=== PATIENT | female | born 1980 | race Caucasian/White ===

== ENCOUNTER 2018-03-29 19:46 | Emergency (ER) | payer OTHER ==
[2018-03-29 20:02] VITALS: BP 137/65; PULSE 92; TEMP 99; BMI 34.9
[2018-03-29] MEDS ORDERED: CLINDAMYCIN 900 MG PREMIX IVPB 900 MG/50 ML BAG IVPB ONE (20:44)
--- NOTE | 2018-03-29 20:44 | PDOC ---
History of Present Illness - General Chief Complaint: Abscess Boil Stated Complaint: PAIN Time Seen by Provider: 03/29/18 20:06 History Source: Patient Exam Limitations: No Limitations - History of Present Illness Initial Comments: 03/29/18 21:16 Best Contact: PCP: Dr. Berg/pt states her PMD recently and did not get another pmd Pmhx:Asthma, Hypoglycemic Pshx: 2016: Right knee arthroscopy ;2007 , @ 19yo: Appendectomy, bilateral ovarian cystectomy Allergies:pcn/"anesthesia medication"/rash/sob FH:0 Social Hx: Cigarettes/ 10 cigarettes a day for the past 10 years Alcohol/ social Drugs/denies LMP:03/22/2018 37-year-old female presents to the ER complaining of an early abscess to the left labia majora. Patient states she noticed it 2 days ago after "plucking her hair ". Patient denies fever, chills, chest pain, shortness of breath, abdominal pains, urinary symptoms: Frequency/urgency/hesitancy, burning upon urination, hematuria. Patient states pain is exacerbated on touch but alleviated with warm compresses. Patient adamantly refuses any type of I&D. Patient states she wants to have under sedation by her obstetrician gynecologist. Past History - Past Medical History Allergies/Adverse Reactions: Allergies Allergy/AdvReac Type Severity Reaction Status Date / Time Penicillins Allergy Swelling Verified 03/29/18 19:49 ANESTHESIA Allergy Swelling Uncoded 03/29/18 19:49 Home Medications: Ambulatory Orders Albuterol Sulfate Inhaler - [Ventolin Hfa Inhaler -] 2 inh PO Q4H PRN 10/02/16 Asthma: Yes COPD: No Kidney Stones: Yes - Surgical History Appendectomy: Yes Cholecystectomy: No - Immunization History Td Vaccination: Yes Immunization Up to Date: Yes - Suicide/Smoking/Psychosocial Hx Smoking Status: No Smoking History: Current every day smoker Years of Tobacco Use: 0 Number of Cigarettes Smoked Daily: 10 Cigars Per Day: 0 Information on smoking cessation initiated: No 'Breaking Loose' booklet given: 07/11/15 Hx Alcohol Use: Yes Drug/Substance Use Hx: No Substance Use Type: None Hx Substance Use Treatment: Yes (new focus 2014,2015) Review of Systems - Review of Systems Able to Perform ROS?: Yes Comments:: 03/29/18 21:03 CONSTITUTIONAL: Absent: fever, chills, diaphoresis, generalized weakness, malaise, loss of appetite GENITOURINARY: Absent: dysuria, frequency, urgency, hesitancy, hematuria, flank pain, genital pain MUSCULOSKELETAL: Absent: myalgia, arthralgia, joint swelling SKIN: Indurated 2cm x3cm labia majora Absent: rash, itching, pallor HEMATOLOGIC/IMMUNOLOGIC: Absent: easy bleeding, easy bruising, lymphadenopathy, frequent infections ENDOCRINE: Absent: unexplained weight gain, unexplained weight loss, heat intolerance, cold intolerance Is the patient limited B[place]udian proficient: No *Physical Exam - Vital Signs Last Vital Signs Temp Pulse Resp BP Pulse Ox 99 F 92 H 18 137/65 98 03/29/18 19:51 03/29/18 19:51 03/29/18 19:51 03/29/18 19:51 03/29/18 19:51 - Physical Exam Comments: 03/29/18 21:09 GENERAL: Well developed, well nourished. Awake and alert. No acute distress. ABDOMINAL: Soft. Non-tender. Non-distended. No rebound or guarding. No organomegaly. Normoactive bowel sounds. MUSCULOSKELETAL Normal range of motion at all joints. No bony deformities or tenderness. No CVA tenderness. EXTREMITIES: No cyanosis. No clubbing. No edema. No calf tenderness. SKIN: Indurated 2cm x3cm labia majora; neg lymphangitis Warm and dry. Normal capillary refill. No rashes. No jaundice. Progress Note - Progress Note Progress Note: 2101hrs: Pt refuses I&D. Pt adamantly wishes to f/u with obstetrician gynecologist to have sedation duirng I&D. Clindamycin 900ivss *DC/Admit/Observation/Transfer Diagnosis at time of Disposition: Left genital labial abscess - Discharge Dispostion Disposition: HOME Condition at time of disposition: Stable Decision to Admit order: No - Referrals Referrals: Ramon Berg [Primary Care Provider] - Miriam Pineda MD [Staff Physician] - - Patient Instructions Printed Discharge Instructions: DI for Skin Abscess Additional Instructions: Warm compresses Antibiotics as prescribed Follow-up with [facility] within the next 2 days You refused to have an I&D/incision and drainage to your abscess and therefore insists on antibiotics. It is imperative that you follow up with your field sales manager within 48 hours. Return back to the ER for severe/persistent or worsening symptoms, fever or or red streak - Post Discharge Activity
== END 2018-03-29 21:50 | disposition home or self-care (01) ==
LOC: JER 19:46
DX: N76.4 Abscess of vulva (principal); Z87.09 Personal history of other diseases of the respiratory system; F17.210 Nicotine dependence, cigarettes, uncomplicated
CPT/HCPCS: 96365; 99282-25

== ENCOUNTER 2019-02-25 13:43 | Emergency (ER) | payer OTHER ==
--- NOTE | 2019-02-25 13:58 | PDOC ---
Rapid Medical Evaluation Chief Complaint: Injury Time Seen by Provider: 02/25/19 13:46 Medical Evaluation: Allergies Allergy/AdvReac Type Severity Reaction Status Date / Time Penicillins Allergy Swelling Verified 02/25/19 13:52 ANESTHESIA Allergy Swelling Uncoded 02/25/19 13:52 02/25/19 13:56 CC: right hand pain s/p window closed on hand. RHD. PE: tender over 2nd-5th metatarsals of right hand Orders: ice, xray Patient will proceed to ED for further evaluation. Discharge Disposition - Diagnosis Right hand pain - Referrals - Patient Instructions - Post Discharge Activity
[2019-02-25 14:02] VITALS: BP 127/84; PULSE 101; TEMP 98.2; BMI 35.9
[2019-02-25] MEDS ORDERED: IBUPROFEN 600 MG TABLET (FP) PO ONE ×2 (14:07→14:11)
--- NOTE | 2019-02-25 14:45 | PDOC ---
History of Present Illness - General Chief Complaint: Injury Stated Complaint: INJURY Time Seen by Provider: 02/25/19 13:46 History Source: Patient Exam Limitations: No Limitations - History of Present Illness Initial Comments: 02/25/19 15:28 Chief complaint: Right hand injury Patient is a 38-year-old female with a history of asthma who states she closed her right hand in a window last night. Hand is swollen and painful. Patient took her rings off. Patient did not take any pain medicine. GENERAL/CONSTITUTIONAL: No fever, weakness. dizziness HEAD, EYES, EARS, NOSE AND THROAT: No change in vision. No ear pain or discharge. No sore throat. CARDIOVASCULAR: No chest pain RESPIRATORY: No shortness of breath or cough GASTROINTESTINAL: No pain, nausea, vomiting, diarrhea or constipation GENITOURINARY: No dysuria MUSCULOSKELETAL: + Right hand, no neck or back pain SKIN: No rash NEUROLOGIC: No headache, vertigo, loss of consciousness, or loss of sensation. GENERAL: The patient is awake, alert, and fully oriented, in no acute distress. HEAD: Normal with no signs of trauma. EYES: Pupils equal, round and reactive to light, sclera anicteric, conjunctiva clear. ENT: pharynx: no erythema, no exudate, uvula midline NECK: supple CHEST: clear, nontender, rr ABD: soft, nontender BACK: no tenderness or signs of injury EXTREMITIES: Right hand with swelling on the dorsum, no signs of infection, no deformity, limited range of motion secondary to pain, neurovascular intact. Rest of extremities, normal range of motion, no edema. NEUROLOGICAL: Normal speech, normal gait. SKIN: Warm, Dry Past History - Past Medical History Allergies/Adverse Reactions: Allergies Allergy/AdvReac Type Severity Reaction Status Date / Time Penicillins Allergy Swelling Verified 02/25/19 13:52 ANESTHESIA Allergy Swelling Uncoded 02/25/19 13:52 Home Medications: Ambulatory Orders Albuterol Sulfate Inhaler - [Ventolin Hfa Inhaler -] 2 inh PO Q4H PRN 10/02/16 Acetaminophen W/ Codeine #3 [Tylenol # 3 -] 1 tab PO TID #12 tablet MDD 3 Clindamycin [Cleocin -] 300 mg PO TID #21 capsule 03/29/18 Sulfamethoxazole/Trimethoprim [Bactrim Ds -] 1 tab PO BID #14 tablet 03/29/18 Asthma: Yes Cancer: No Cardiac Disorders: No CVA: No COPD: No CHF: No Dementia: No Diabetes: No GI Disorders: No Disorders: No HTN: No Hypercholesterolemia: No Kidney Stones: Yes Liver Disease: No Seizures: No Thyroid Disease: No - Surgical History Appendectomy: Yes Cholecystectomy: No - Immunization History Td Vaccination: Yes Immunization Up to Date: Yes - Psycho Social/Smoking Cessation Hx Smoking Status: No Smoking History: Current every day smoker Years of Tobacco Use: 0 Number of Cigarettes Smoked Daily: 10 Cigars Per Day: 0 Information on smoking cessation initiated: No 'Breaking Loose' booklet given: 07/11/15 Hx Alcohol Use: No Drug/Substance Use Hx: No Substance Use Type: None Hx Substance Use Treatment: Yes (new focus 2014,2015) *Physical Exam - Vital Signs Last Vital Signs Temp Pulse Resp BP Pulse Ox 98.2 F 101 H 17 127/84 100 02/25/19 13:52 02/25/19 13:52 02/25/19 13:52 02/25/19 13:52 02/25/19 13:52 Procedures - Splinting Splint Location: Right: Hand Pre-Proc Neuro Vasc Exam: normal Hand-Made Type: orthoglass Splint Type: Yes: Volar Post-Proc Neuro Vasc Exam: normal Colin Bandage: 3" Sling: No ED Treatment Course - Medications Given in the ED: ED Medications Discontinued Medications Generic Name Dose Route Start Last Admin Trade Name Freq PRN Reason Stop Dose Admin Ibuprofen 600 mg 02/25/19 14:07 02/25/19 14:16 Motrin - PO 02/25/19 14:08 600 mg ONCE ONE Administration Medical Decision Making - Medical Decision Making 02/25/19 15:29 38-year-old female history of asthma who closed window on her right hand last night. Hand is swollen and painful. No open wounds or signs of infection. Patient will get x-ray and reassess. X-rays negative, patient is neurovascular intact, without signs of compartment syndrome. Patient will be placed in splint and follow-up with orthopedist for reevaluation and functionality Discussed issues, findings, results, applicable medications and treatments and follow-up. All these were understood and all questions were answered Discharge - Discharge Information Problems reviewed: Yes Clinical Impression/Diagnosis: Hand crush injury Qualifiers: Encounter type: initial encounter Laterality: right Qualified Code(s): S67.21XA - Crushing injury of right hand, initial encounter Condition: Stable Disposition: HOME - Admission No - Additional Discharge Information Prescription Drug Monitoring Program (I-STOP) results: I-STOP not reviewed - Follow up/Referral Referrals: Kailash Berg MD [Primary Care Provider] - Isai Gómez MD [Staff Physician] - - Patient Discharge Instructions Patient Printed Discharge Instructions: DI for Crush Injury Additional Instructions: Elevate, wear splint You can apply ice for 20 minutes every 2 hours for the next 2 days Motrin 600 mg every 6 hours for pain. Call the orthopedist tomorrow Is very important for you to keep your hand elevated, otherwise the swelling can become very severe, if this happens it can impair your circulation. If this happens and your fingers turn blue or they become extremely painful, remove the splint and return to the ER right away - Post Discharge Activity
== END 2019-02-25 14:48 | disposition home or self-care (01) ==
LOC: JERFT 13:43 → JER 13:43 → JERFT 14:48
PROC: 2W3CX1Z Immobilization of Right Lower Arm using Splint (ICD-10-PCS; principal; 2019-02-25)
DX: S67.21XA Crushing injury of right hand, initial encounter (principal); W23.0XXA Caught, crushed, jammed, or pinched between moving objects, initial encounter; Y93.89 Activity, other specified; Y92.89 Other specified places as the place of occurrence of the external cause; Y99.8 Other external cause status; J45.909 Unspecified asthma, uncomplicated; Z87.442 Personal history of urinary calculi; Z88.0 Allergy status to penicillin; Z88.4 Allergy status to anesthetic agent
CPT/HCPCS: 73130-TC-RT-FY; 99281-25

== ENCOUNTER 2019-06-07 12:19 | Emergency (ER) | payer OTHER ==
[2019-06-07 12:24] VITALS: TEMP 98.5; BMI 34.0
[2019-06-07] MEDS ORDERED: ONDANSETRON 4 MG/2 ML VIAL IVPUSH ONE (14:29)
[2019-06-07] MEDS ORDERED: KETOROLAC TROMETHAMINE 30 MG/1 ML VIAL IVPUSH ONE (14:29)
[2019-06-07] MEDS ORDERED: SODIUM CHLORIDE 1,000 ML IV STA ×2 (14:29→16:09)
[2019-06-07] MEDS ORDERED: KETOROLAC TROMETHAMINE 30 MG/1 ML VIAL ONE (15:18)
[2019-06-07] MEDS ORDERED: ONDANSETRON 4 MG/2 ML VIAL ONE (15:19)
[2019-06-07 15:28] LABS: BASO % 0.2 % (0-2.0); EOS % 1.1 % (0-4.5); HEMATOCRIT 42.1 % (32.4-45.2); HEMOGLOBIN 14.2 GM/dL (10.7-15.3); LYMPH % 11.9 % (8-40); MCH 30.7 pg (25.7-33.7); MCHC 33.7 g/dl (32.0-36.0); MEAN CELL VOLUME 91.2 fl (80-96); MEAN PLT VOLUME 7.8 fl (7.5-11.1); MONO % 6.3 % (3.8-10.2); NEUT % 80.5 % (42.8-82.8); PLATELET COUNT 330 K/MM3 (134-434); RBC 4.62 M/mm3 (3.60-5.2); WHITE BLOOD COUNT 11.4 K/mm3 (4.0-10.0)
[2019-06-07 15:30] LABS: EPI CELLS 5.5 /HPF (0-5/HPF); HYALINE CASTS 19 /lpf (0-8); URINE APPEARANCE CLOUDY; URINE BILIRUBIN NEGATIVE (NEGATIVE); URINE COLOR YELLOW; URINE GLUCOSE (UA) NEGATIVE (NEGATIVE); URINE KETONE NEGATIVE (NEGATIVE); URINE LEUK ESTERASE 1+ (NEGATIVE); URINE NITRITE NEGATIVE (NEGATIVE); URINE PROTEIN NEGATIVE (NEGATIVE); URINE WBC 33 /hpf (0-5)
--- NOTE | 2019-06-07 16:03 | PDOC ---
History of Present Illness - General Chief Complaint: Vomiting/Diarrhea Stated Complaint: Cold Symptoms Time Seen by Provider: 06/07/19 14:23 History Source: Patient Exam Limitations: No Limitations - History of Present Illness Travel History: No Initial Comments: 06/07/19 15:58 38-year-old female presents the ED with complaints of nausea vomiting and diarrhea along with upper abdominal cramping and bilateral rib pain. Patient also states chills. Patient denies any recent travel recent illness or recent sick contacts. Patient states was drinking alcohol last night which seemed to aggravate her symptoms. Patient states has not take anything for the above but states unable to tolerate fluids. Timing/Duration: reports: constant Quality: reports: mild, cramping Abdominal Pain Onset Location: reports: epigastric Pain Radiation: reports: no radiation Activities at Onset: reports: none Aggravating Factors: improves with: None Alleviating Factors: improves with: None Past History - Travel Traveled outside of the country in the last 30 days: No Close contact w/someone who was outside of country & ill: No - Past Medical History Allergies/Adverse Reactions: Allergies Allergy/AdvReac Type Severity Reaction Status Date / Time Penicillins Allergy Swelling Verified 06/07/19 12:21 ANESTHESIA Allergy Swelling Uncoded 06/07/19 12:21 Home Medications: Ambulatory Orders Albuterol Sulfate Inhaler - [Ventolin Hfa Inhaler -] 2 inh PO Q4H PRN 10/02/16 Acetaminophen W/ Codeine #3 [Tylenol # 3 -] 1 tab PO TID #12 tablet MDD 3 Clindamycin [Cleocin -] 300 mg PO TID #21 capsule 03/29/18 Sulfamethoxazole/Trimethoprim [Bactrim Ds -] 1 tab PO BID #14 tablet 03/29/18 Asthma: Yes Cancer: No Cardiac Disorders: No CVA: No COPD: No CHF: No Dementia: No Diabetes: No GI Disorders: No Disorders: No HTN: No Hypercholesterolemia: No Kidney Stones: Yes Liver Disease: No Seizures: No Thyroid Disease: No - Surgical History Appendectomy: Yes Cholecystectomy: No - Immunization History Td Vaccination: Yes Immunization Up to Date: Yes - Psycho Social/Smoking Cessation Hx Smoking Status: No Smoking History: Current every day smoker Years of Tobacco Use: 0 Number of Cigarettes Smoked Daily: 10 Cigars Per Day: 0 Information on smoking cessation initiated: No 'Breaking Loose' booklet given: 07/11/15 Hx Alcohol Use: No Drug/Substance Use Hx: No Substance Use Type: None Hx Substance Use Treatment: Yes (new focus 2014,2015) Patient Lives Alone: No Lives with/in: spouse/SO Review of Systems - Review of Systems Able to Perform ROS?: Yes Constitutional: Yes: Chills, Weakness HEENTM: No: Symptoms Reported Respiratory: No: Symptoms reported Cardiac (ROS): No: Symptoms Reported ABD/GI: Yes: Diarrhea, Nausea, Poor Appetite, Poor Fluid Intake, Vomiting, Abdominal cramping : No: Symptoms Reported Musculoskeletal: No: Symptoms Reported Integumentary: No: Symptoms Reported Neurological: No: Symptoms reported Endocrine: No: Symptoms Reported *Physical Exam - Vital Signs Last Vital Signs Temp Pulse Resp BP Pulse Ox 98.5 F 111 H 18 112/68 100 06/07/19 12:21 06/07/19 12:21 06/07/19 12:21 06/07/19 12:21 06/07/19 12:21 - Physical Exam General Appearance: Yes: Nourished, Appropriately Dressed. No: Apparent Distress HEENT: positive: TMs Normal, Pharynx Normal. negative: Pale Conjunctivae Neck: positive: Supple Respiratory/Chest: positive: Wheezing (rt base). negative: Respiratory Distress , Accessory Muscle Use Cardiovascular: positive: Regular Rhythm, Tachycardia. negative: Murmur Gastrointestinal/Abdominal: positive: Soft, Tenderness (Epigastric) Musculoskeletal: negative: CVA Tenderness Extremity: positive: Normal Inspection Integumentary: positive: Normal Color, Warm, Moist Neurologic: positive: Motor Strength 5/5 (Ambulatory) ED Treatment Course - LABORATORY CBC & Chemistry Diagram: 06/07/19 15:01 06/07/19 15:01 - ADDITIONAL ORDERS Additional order review: Laboratory Results 06/07/19 06/07/19 15:01 15:01 Magnesium 2.0 Lipase 109 Urine Color Yellow Urine Appearance Cloudy Urine pH 5.0 Ur Specific [place] 1.029 Urine Protein Negative Urine Glucose (UA) Negative Urine Ketones Negative Urine Blood 2+ H Urine Nitrite Negative Urine Bilirubin Negative Urine Urobilinogen 1.0 Ur Leukocyte Esterase 1+ H Urine WBC (Auto) 33 Urine Casts (Auto) 19 U Epithel Cells (Auto) 5.5 Urine Bacteria (Auto) 355.0 06/07/19 15:01 RBC 4.62 MCV 91.2 MCHC 33.7 RDW 13.0 MPV 7.8 Neutrophils % 80.5 Lymphocytes % 11.9 Monocytes % 6.3 Eosinophils % 1.1 Basophils % 0.2 - Medications Given in the ED: ED Medications Discontinued Medications Generic Name Dose Route Start Last Admin Trade Name Freq PRN Reason Stop Dose Admin Sodium Chloride 1,000 mls @ 1,000 mls/hr 06/07/19 14:29 06/07/19 15:20 Normal Saline - IV 06/07/19 15:28 1,000 mls/hr ASDIR STA Administration Ketorolac Tromethamine 30 mg 06/07/19 14:29 06/07/19 15:20 Toradol Injection - IVPUSH 06/07/19 14:30 30 mg ONCE ONE Administration Ondansetron HCl 4 mg 06/07/19 14:29 06/07/19 15:20 Zofran Injection IVPUSH 06/07/19 14:30 4 mg ONCE ONE Administration Medical Decision Making - Medical Decision Making 06/07/19 15:02 Chief complaint: Patient with nausea vomiting diarrhea chills and decreased appetite since yesterday. Patient states symptoms are aggravated after she drank yesterday now causing worsening nausea and weakness. Exam: Vital signs stable epigastric tenderness on exam otherwise normal physical exam. Plan: Influenza swab, labs, urine, IV fluids, Protonix, Zofran and Toradol ordered 06/07/19 16:04 Laboratory Tests 06/07/19 06/07/19 06/07/19 15:01 15:01 15:01 WBC 11.4 H Hgb 14.2 Hct 42.1 Absolute Neuts (auto) 9.2 H Magnesium 2.0 Lipase 109 Urine Blood 2+ H Urine Nitrite Negative Urine Bilirubin Negative Urine Urobilinogen 1.0 Ur Leukocyte Esterase 1+ H Urine WBC (Auto) 33 Urine Bacteria (Auto) 355.0 Influenza A (Rapid) Influenza B (Rapid) 06/07/19 15:01 WBC Hgb Hct Absolute Neuts (auto) Magnesium Lipase Urine Blood Urine Nitrite Urine Bilirubin Urine Urobilinogen Ur Leukocyte Esterase Urine WBC (Auto) Urine Bacteria (Auto) Influenza A (Rapid) Negative Influenza B (Rapid) Negative 06/07/19 18:27 CT shows left hydro-nephrolithiasis with no evidence of obstructive uropathy or acute pathology within the abdomen or pelvis. Chest x-ray shows normal chest. Patient does not want her second liter of fluid. Patient given Robitussin with codeine. Will discharge patient home with antibiotics for UTI. No previous urine culture on file. Will discharge home with Macrobid along with Zofran Discharge - Discharge Information Problems reviewed: Yes Clinical Impression/Diagnosis: Cough, UTI (urinary tract infection), Bronchitis Condition: Improved Disposition: HOME - Follow up/Referral - Patient Discharge Instructions Patient Printed Discharge Instructions: DI for Cough -- Adult, DI for Urinary Tract Infection (UTI) Additional Instructions: Please take Robitussin-AC as prescribed do not operate any heavy machinery while taking this medication. Take Levaquin as prescribed for UTI along with treatment for bronchitis. Take Zofran as needed for nausea. We will call you if your urine culture shows a different bacteria that is not responsive to Levaquin - Post Discharge Activity Work/Back to School Note: Back to Work
[2019-06-07 16:08] LABS: ALBUMIN 3.4 g/dl (3.4-5.0); BILIRUBIN,TOTAL 0.5 mg/dL (0.2-1); BLOOD UREA NITROGEN 12.7 mg/dL (7-18); CALCIUM 8.6 mg/dL (8.5-10.1); CREATININE 0.9 mg/dL (0.55-1.3); POTASSIUM 3.7 mmol/L (3.5-5.1); TOT PROT 7.1 g/dl (6.4-8.2)
[2019-06-07] MEDS ORDERED: guaiFENesin/CODEINE 10 ML UNIT-DOSE CUPS PO ONE (16:09)
[2019-06-07 16:44] LABS: URINE RBC 4.9 /hpf (0-4)
[2019-06-07] MEDS ORDERED: guaiFENesin/CODEINE 5 ML UNIT-DOSE CUPS PO ONE (18:15)
[2019-06-07 18:56] VITALS: BP 121/71; PULSE 82
== END 2019-06-07 18:56 | disposition home or self-care (01) ==
LOC: JER 12:19
PROC: 3E0337Z Introduction of Electrolytic and Water Balance Substance into Peripheral Vein, Percutaneous Approach (ICD-10-PCS; principal; 2019-06-07)
PROC: 3E033GC Introduction of Other Therapeutic Substance into Peripheral Vein, Percutaneous Approach (ICD-10-PCS; 2019-06-07)
PROC: 3E0333Z Introduction of Anti-inflammatory into Peripheral Vein, Percutaneous Approach (ICD-10-PCS; 2019-06-07)
DX: J40 Bronchitis, not specified as acute or chronic (principal); N39.0 Urinary tract infection, site not specified; Z88.0 Allergy status to penicillin; Z88.4 Allergy status to anesthetic agent; N13.39 Other hydronephrosis; Z87.442 Personal history of urinary calculi; Z87.09 Personal history of other diseases of the respiratory system
CPT/HCPCS: 36415; 71046-TC-FY; 74176-TC; 80053; 81003; 83690; 83735; 85025; 87086; 87804; 96361; 96374; 96375; 99283-25; J7030

== ENCOUNTER 2019-12-13 12:29 | Emergency (ER) | payer OTHER ==
[2019-12-13 12:34] VITALS: BP 132/82; PULSE 78; TEMP 98.2; BMI 30.2
[2019-12-13] MEDS ORDERED: SODIUM CHLORIDE 1,000 ML IV STA (12:59)
[2019-12-13] MEDS ORDERED: morphine CARPU-JECT 4 MG/1 ML DISP.SYRIN IVPUSH ONE (12:59)
[2019-12-13] MEDS ORDERED: ONDANSETRON 4 MG/2 ML VIAL IVPUSH ONE (13:00)
[2019-12-13] MEDS ORDERED: morphine SULFATE 4 MG/ML VIAL ONE (13:25)
[2019-12-13 13:31] LABS: BASO % 0.8 % (0-2.0); EOS % 3.7 % (0-4.5); HEMATOCRIT 45.6 % (32.4-45.2); HEMOGLOBIN 15.3 GM/dL (10.7-15.3); LYMPH % 22.3 % (8-40); MCH 30.9 pg (25.7-33.7); MCHC 33.5 g/dl (32.0-36.0); MEAN CELL VOLUME 92.2 fl (80-96); MEAN PLT VOLUME 8.1 fl (7.5-11.1); MONO % 7.4 % (3.8-10.2); NEUT % 65.8 % (42.8-82.8); PLATELET COUNT 360 K/MM3 (134-434); RBC 4.94 M/mm3 (3.60-5.2); RDW 12.9 % (11.6-15.6); WHITE BLOOD COUNT 8.6 K/mm3 (4.0-10.0)
[2019-12-13 13:40] LABS: HCG,QUALITATIVE URINE Negative
[2019-12-13 13:43] LABS: EPI CELLS 26 /uL (0-25.1); HYALINE CASTS 2 /uL (0-3.1); PH,URINE 5.5 (5.0-8.0); URINE APPEARANCE CLEAR; URINE BACTERIA 250 /uL (0-1359); URINE BILIRUBIN NEGATIVE (NEGATIVE); URINE COLOR YELLOW; URINE GLUCOSE (UA) NEGATIVE (NEGATIVE); URINE KETONE NEGATIVE (NEGATIVE); URINE LEUK ESTERASE NEGATIVE (NEGATIVE); URINE NITRITE NEGATIVE (NEGATIVE); URINE PROTEIN NEGATIVE (NEGATIVE); URINE RBC 12 /uL (0-23.9); URINE UROBILINOGEN 0.2 mg/dL (0.2-1.0); URINE WBC 13 /uL (0-25.8)
[2019-12-13 13:59] LABS: ALBUMIN 3.7 g/dl (3.4-5.0); BILIRUBIN,TOTAL 0.5 mg/dL (0.2-1); BLOOD UREA NITROGEN 9.9 mg/dL (7-18); CALCIUM 9.5 mg/dL (8.5-10.1); POTASSIUM 4.5 mmol/L (3.5-5.1); TOT PROT 7.7 g/dl (6.4-8.2)
--- NOTE | 2019-12-13 14:21 | PDOC ---
History of Present Illness - General Chief Complaint: Pain, Acute Stated Complaint: RT SIDE ABD PAIN/VOMITING Time Seen by Provider: 12/13/19 12:36 History Source: Patient Exam Limitations: No Limitations - History of Present Illness Initial Comments: 12/13/19 14:17 Patient is a 38-year-old female with no past medical history presents to the ED with complaint of right flank pain and right upper quadrant abdominal pain for the last 3 weeks. She has been intermittently vomiting. She denies any fevers or chills. She denies any dysuria or hematuria. She has not taken anything for pain. She states the pain is worse with deep inspiration. She denies any known trauma. The patient does state that she has had a kidney stone in the past but this feels different. She also states she has broken multiple ribs and collapsed the lung in the past but the pain does not feel similar. She has allergies to penicillin and "anesthesia". Past History - Medical History Allergies/Adverse Reactions: Allergies Allergy/AdvReac Type Severity Reaction Status Date / Time Penicillins Allergy Swelling Verified 12/13/19 12:31 ANESTHESIA Allergy Swelling Uncoded 12/13/19 12:31 Home Medications: Ambulatory Orders Albuterol Sulfate Inhaler - [Ventolin Hfa Inhaler -] 2 inh PO Q4H PRN 10/02/16 Acetaminophen W/ Codeine #3 [Tylenol # 3 -] 1 tab PO TID #12 tablet MDD 3 03/29/18 Clindamycin [Cleocin -] 300 mg PO TID #21 capsule 03/29/18 Sulfamethoxazole/Trimethoprim [Bactrim Ds -] 1 tab PO BID #14 tablet 03/29/18 Guaifenesin AC [Robitussin AC] 10 ml PO Q8H PRN #100 ml MDD 3 06/07/19 Ondansetron HCl [Zofran] 4 mg PO TID PRN #12 tablet 06/07/19 levoFLOXacin [Levaquin -] 500 mg PO DAILY #3 tablet 06/07/19 Gabapentin 100 mg PO TID #30 capsule 12/13/19 Ibuprofen [Motrin -] 600 mg PO TID PRN #21 tablet 12/13/19 Ondansetron [Zofran *Odt*] 4 mg SL TID PRN #21 od.tablet 12/13/19 Asthma: Yes Cancer: No Cardiac Disorders: No CVA: No COPD: No CHF: No Dementia: No Diabetes: No GI Disorders: No Disorders: No HTN: No Hypercholesterolemia: No Kidney Stones: Yes Liver Disease: No Seizures: No Thyroid Disease: No - Surgical History Appendectomy: Yes Cholecystectomy: No - Reproductive History Is Patient Now?: No - Immunization History Td Vaccination: Yes Immunization Up to Date: Yes - Psycho-Social/Smoking History Smoking Status: No Smoking History: Current every day smoker Years of Tobacco Use: 0 Number of Cigarettes Smoked Daily: 20 Cigars Per Day: 0 Information on smoking cessation initiated: No 'Breaking Loose' booklet given: 07/11/15 - Substance Abuse Hx (Audit-C & DAST Scrn) How often the patient has a drink containing alcohol: Monthly or less Number of drinks the patient has on a typical day: 1 or 2 How often the patient has six or more drinks on one occasion: Never Score: In Men: 4 or > Positive; In Women: 3 or > Positive: 1 Screen Result (Pos requires Nsg. Audit-10AR): Negative In the last yr the pt used illegal drug/Rx for NonMed reason: No Score: Yes response is considered Positive: 0 Screen Result (Positive result requires Nsg. DAST-10): Negative Review of Systems - Review of Systems Comments:: 12/13/19 14:19 - Review of Systems Able to Perform ROS?: Yes Constitutional: No: Fever, Chills, Loss of Appetite, Night Sweats, Weakness HEENTM: No: Eye Pain, Vision changes, Ear Pain, Throat Pain, Throat Swelling, Mouth Pain, Difficulty Swallowing Respiratory: No: Cough, Shortness of Breath, Wheezing, Sputum Production Cardiac (ROS): No: Chest Pain, Chest Tightness, Palpitations, Irregular Heart Beat, Edema ABD/GI: No: Nausea, positive: Right upper quadrant and right flank pain, vomiting : No Dysuria, No Hematuria, No Frequency, No Urgency Musculoskeletal: No: Muscle Pain, Back Pain, Joint Pain, Muscle Weakness, Neck Pain Integumentary: No: Lesions, Rash Neurological: No: Headache, Numbness, Tingling, Weakness, Speech Difficulties *Physical Exam - Vital Signs Last Vital Signs Temp Pulse Resp BP Pulse Ox 98.2 F 78 20 132/82 100 12/13/19 12:31 12/13/19 12:31 12/13/19 12:31 12/13/19 12:31 12/13/19 12:31 - Physical Exam 12/13/19 14:19 - Physical Exam General Appearance: Nourished, Appropriately Dressed, No Distress HEENT: EOMI, Normal Voice, No Pharyngeal Erythema, No Muffled/Hoarse voice, No Tonsillar Exudate, No Tonsillar Erythema, No Nasal Congestion, No Rhinorrhea, Hearing Grossly Normal, TMs Normal, No TM Bulging, No TM Dullness, No TM Erythema Neck: Supple, No Lymphadenopathy (R), No Lymphadenopathy (L), No Rigidity, No Decreased range of motion Respiratory/Chest: Lungs Clear, Normal Breath Sounds. No Respiratory Distress, No Accessory Muscle Use Cardiovascular: Regular Rhythm, Regular Rate, S1, S2 Gastrointestinal/Abdominal: Normal Bowel Sounds, significant right upper quadrant abdominal tenderness to palpation. Positive Guerin sign. Positive CVA tenderness on the right. No rebound. Negative Rovsing sign. No tenderness over McBurney's point. No rashes on the skin appreciated. Positive voluntary guarding. Musculoskeletal: Normal Inspection. No Decreased Range of Motion Extremity: Normal Capillary Refill, Normal Inspection Integumentary: Normal Color, Dry. 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 NML intact, Fully Oriented, Alert, Normal Mood/Affect, Normal Response ED Treatment Course - LABORATORY CBC & Chemistry Diagram: 12/13/19 13:11 12/13/19 13:11 - ADDITIONAL ORDERS Additional order review: Laboratory Results 12/13/19 12/13/19 13:19 13:11 Sodium 139 Potassium 4.5 Chloride 105 Carbon Dioxide 28 Anion Gap 5 L BUN 9.9 Creatinine 1.0 Est GFR (CKD-EPI)AfAm 83.35 Est GFR (CKD-EPI)NonAf 71.91 Random Glucose 94 Calcium 9.5 Total Bilirubin 0.5 AST 18 ALT 20 Alkaline Phosphatase 83 Total Protein 7.7 Albumin 3.7 Lipase 143 Urine Color Yellow Urine Appearance Clear Urine pH 5.5 Ur Specific [place] 1.020 Urine Protein Negative Urine Glucose (UA) Negative Urine Ketones Negative Urine Blood Trace Urine Nitrite Negative Urine Bilirubin Negative Urine Urobilinogen 0.2 Ur Leukocyte Esterase Negative Urine WBC (Auto) 13 Urine RBC (Auto) 12 Urine Casts (Auto) 2 U Epithel Cells (Auto) 26 Urine Bacteria (Auto) 250 Urine HCG, Qual Negative 12/13/19 13:11 RBC 4.94 MCV 92.2 MCHC 33.5 RDW 12.9 MPV 8.1 Neutrophils % 65.8 Lymphocytes % 22.3 D Monocytes % 7.4 Eosinophils % 3.7 D Basophils % 0.8 D - RADIOLOGY Radiology Studies Ordered: Category Date Time Status ABDOMEN & PELVIS CT W/O CONTR [CT] Stat CT Scan 12/13/19 13:01 Ordered - Medications Given in the ED: ED Medications Discontinued Medications Generic Name Dose Route Start Last Admin Trade Name Freq PRN Reason Stop Dose Admin Sodium Chloride 1,000 mls @ 1,000 mls/hr 12/13/19 12:59 12/13/19 13:32 Normal Saline - IV 12/13/19 13:58 1,000 mls/hr ASDIR STA Administration Morphine Sulfate 4 mg 12/13/19 12:59 12/13/19 13:32 Morphine Injection - IVPUSH 12/13/19 13:00 4 mg ONCE ONE Administration Ondansetron HCl 4 mg 12/13/19 13:00 12/13/19 13:32 Zofran Injection IVPUSH 12/13/19 13:01 4 mg ONCE ONE Administration Medical Decision Making - Medical Decision Making 12/13/19 14:20 Assessment: Patient is a 38-year-old female with right upper quadrant and right flank pain. Plan: -Saline lock and labs ordered -CT noncontrast of the abdomen and pelvis ordered -Morphine and Zofran given -Will reassess EKG at 14:13 NSR @ 69 bpm, no ST/T wave abnormalities 12/13/19 15:57 The patient has been made aware that her CT scan is negative for any acute pathology. She was sent for chest x-ray which was reviewed with Dr. Dorsey which shows no acute pathology. The patient has been made aware that her labs are all within normal limits. At this time, we are unsure where her pain is c oming from but it could be a neuropathic pain like postherpetic neuralgia or from a thoracic nerve impingement. We will discharge the patient with a prescription for Motrin and gabapentin and she can follow-up with spine surgery. She has been given strict return precautions. She understands and agrees with this treatment plan and she is stable for discharge. Discharge - Discharge Information Problems reviewed: Yes Clinical Impression/Diagnosis: Right flank pain Condition: Stable Disposition: HOME - Additional Discharge Information Prescriptions: Gabapentin 100 mg PO TID #30 capsule Ibuprofen [Motrin -] 600 mg PO TID PRN #21 tablet PRN Reason: Pain Ondansetron [Zofran *Odt*] 4 mg SL TID PRN #21 od.tablet PRN Reason: Nausea - Follow up/Referral Referrals: Donn Brewster MD [Staff Physician] - - Patient Discharge Instructions Patient Printed Discharge Instructions: Neuropathic Pain, DI for Flank Pain Additional Instructions: Get plenty of rest and drink plenty of fluids. Try taking the gabapentin as prescribed to help with your pain. You can also take Motrin as prescribed but o nly as needed. Be sure to take the Motrin with food. Use the Zofran as needed for nausea. Be sure to follow-up with your primary doctor and the spine surgeon for further evaluation and treatment. Return for high fevers, shaking chills, profuse vomiting, worsening pain or any other worsening symptoms. - Post Discharge Activity
--- NOTE | 2019-12-13 15:13 | PDOC ---
*Physical Exam - Vital Signs Last Vital Signs Temp Pulse Resp BP Pulse Ox 98.2 F 78 20 132/82 100 12/13/19 12:31 12/13/19 12:31 12/13/19 12:31 12/13/19 12:31 12/13/19 12:31 Heart Score/ECG Review #1 ECG reviewed & interpreted by me at: 14:13 General ECG Interpretation: Sinus Rhythm, Normal Rate (69), Normal Intervals (qtc 439), No acute ischemic changes ED Treatment Course - LABORATORY CBC & Chemistry Diagram: 12/13/19 13:11 12/13/19 13:11 - ADDITIONAL ORDERS Additional order review: Laboratory Results 12/13/19 12/13/19 13:19 13:11 Sodium 139 Potassium 4.5 Chloride 105 Carbon Dioxide 28 Anion Gap 5 L BUN 9.9 Creatinine 1.0 Est GFR (CKD-EPI)AfAm 83.35 Est GFR (CKD-EPI)NonAf 71.91 Random Glucose 94 Calcium 9.5 Total Bilirubin 0.5 AST 18 ALT 20 Alkaline Phosphatase 83 Total Protein 7.7 Albumin 3.7 Lipase 143 Urine Color Yellow Urine Appearance Clear Urine pH 5.5 Ur Specific [place] 1.020 Urine Protein Negative Urine Glucose (UA) Negative Urine Ketones Negative Urine Blood Trace Urine Nitrite Negative Urine Bilirubin Negative Urine Urobilinogen 0.2 Ur Leukocyte Esterase Negative Urine WBC (Auto) 13 Urine RBC (Auto) 12 Urine Casts (Auto) 2 U Epithel Cells (Auto) 26 Urine Bacteria (Auto) 250 Urine HCG, Qual Negative 12/13/19 13:11 RBC 4.94 MCV 92.2 MCHC 33.5 RDW 12.9 MPV 8.1 Neutrophils % 65.8 Lymphocytes % 22.3 D Monocytes % 7.4 Eosinophils % 3.7 D Basophils % 0.8 D - Medications Given in the ED: ED Medications Discontinued Medications Generic Name Dose Route Start Last Admin Trade Name Freq PRN Reason Stop Dose Admin Sodium Chloride 1,000 mls @ 1,000 mls/hr 12/13/19 12:59 12/13/19 13:32 Normal Saline - IV 12/13/19 13:58 1,000 mls/hr ASDIR STA Administration Morphine Sulfate 4 mg 12/13/19 12:59 12/13/19 13:32 Morphine Injection - IVPUSH 12/13/19 13:00 4 mg ONCE ONE Administration Ondansetron HCl 4 mg 12/13/19 13:00 12/13/19 13:32 Zofran Injection IVPUSH 12/13/19 13:01 4 mg ONCE ONE Administration Medical Decision Making - Medical Decision Making 12/13/19 15:12 Patient seen and evaluated with the nurse practitioner. I agree with the overall evaluation, assessment, and management with the following summary of visit: 38-year-old female presents with ongoing right sided abdominal pain, work-up including labs, urinalysis, and CT of the abdomen and pelvis showed no acute pathology. Question gastritis, will treat with antacid, GI referral, understands return criteria. Discharge - Discharge Information Problems reviewed: Yes Clinical Impression/Diagnosis: Right sided abdominal pain - Follow up/Referral - Patient Discharge Instructions - Post Discharge Activity
--- NOTE | 2019-12-13 16:04 | EKG ---
Test Reason : Blood Pressure : / mmHG Vent. Rate : 069 BPM Atrial Rate : 069 BPM P-R Int : 130 ms QRS Dur : 074 ms QT Int : 410 ms P-R-T Axes : 029 031 029 degrees QTc Int : 439 ms NORMAL SINUS RHYTHM NORMAL ECG WHEN COMPARED WITH ECG OF 31-DEC-2010 14:40, VENT. RATE HAS DECREASED BY 45 BPM Confirmed by YISEL NEWBERRY MD ([id number]) on 12/13/2019 4:03:45 PM Referred By: Confirmed By:YISEL NEWBERRY MD
== END 2019-12-13 16:18 | disposition home or self-care (01) ==
LOC: JER 12:29
PROC: 3E033NZ Introduction of Analgesics, Hypnotics, Sedatives into Peripheral Vein, Percutaneous Approach (ICD-10-PCS; principal; 2019-12-13)
PROC: 3E033GC Introduction of Other Therapeutic Substance into Peripheral Vein, Percutaneous Approach (ICD-10-PCS; 2019-12-13)
PROC: 3E0337Z Introduction of Electrolytic and Water Balance Substance into Peripheral Vein, Percutaneous Approach (ICD-10-PCS; 2019-12-13)
DX: R10.9 Unspecified abdominal pain (principal)
CPT/HCPCS: 36415; 71046-TC-FY; 74176-TC; 80053; 81003; 83690; 84703; 85025; 87086; 93005; 93010; 99285-25

== ENCOUNTER 2021-10-11 16:52 | Emergency (ER) | payer OTHER ==
[2021-10-11 17:10] VITALS: BP 127/86; PULSE 101; TEMP 98.4; BMI 35.9
[2021-10-11] MEDS ORDERED: KETOROLAC TROMETHAMINE 30 MG/1 ML VIAL IM ONE (17:29)
[2021-10-11] MEDS ORDERED: KETOROLAC TROMETHAMINE 30 MG/1 ML VIAL ONE (17:52)
== END 2021-10-11 18:28 | disposition home or self-care (01) ==
LOC: JER 16:52 → JERFT 16:52
PROC: 3E023GC Introduction of Other Therapeutic Substance into Muscle, Percutaneous Approach (ICD-10-PCS; principal; 2021-10-11)
DX: S93.402A Sprain of unspecified ligament of left ankle, initial encounter (principal); X50.9XXA Other and unspecified overexertion or strenuous movements or postures, initial encounter
CPT/HCPCS: 73590-TC-LT-FY; 73610-TC-LT-FY; 73630-TC-LT; 99284-25